=== PATIENT | male | born 1950 | race Caucasian/White ===

== ENCOUNTER 2017-03-29 12:45 | Emergency (ER) | payer MEDICARE, OTHER ==
[2017-03-29 14:35] LABS: HEMOGLOBIN 14.7 gm/dl (14.0-17.5); RED BLOOD COUNT 4.75 M/UL (4.20-5.50); WHITE BLOOD COUNT 5.2 K/UL (4.5-11.0)
[2017-03-29 15:04] LABS: BUN/CREATININE RATIO 21 (0-10)
== END 2017-03-29 17:55 | disposition home or self-care (01) ==
LOC: ER1 12:45
PROVIDERS: Family Medicine
DX: R07.89 Other chest pain (principal); R00.2 Palpitations; R06.02 Shortness of breath; R53.1 Weakness; R61 Generalized hyperhidrosis; I10 Essential (primary) hypertension; J45.909 Unspecified asthma, uncomplicated; E11.9 Type 2 diabetes mellitus without complications; Z90.49 Acquired absence of other specified parts of digestive tract; F17.220 Nicotine dependence, chewing tobacco, uncomplicated; Z79.84 Long term (current) use of oral hypoglycemic drugs; Z79.899 Other long term (current) drug therapy
CPT/HCPCS: 36415; 71010; 80053; 82550; 82553; 83874; 84484; 85025; 93005; 99285

== ENCOUNTER 2022-06-14 18:58 | Emergency (ER) | payer MEDICARE, OTHER ==
[~2022-06-14 18:58] MED LIST: ASPIRIN CHEWABL81 MG PO; CARDURA4 MG PO; FLEXERIL 10 MG10 MG PO; GLUCOPHAGE500 MG PO; HYDROCHLOROTHIA25 MG PO; LODINE CAP 300300 MG PO; MOBIC7.5 MG PO; TRAZODONE HCL100 MG PO; Voltaren Gel 1% TOP
[2022-06-14 19:27] LABS: HEMOGLOBIN 14.5 gm/dl (14.0-17.5); RED BLOOD COUNT 4.65 M/UL (4.20-5.50); WHITE BLOOD COUNT 5.4 K/UL (4.5-11.0)
[2022-06-14 19:49] LABS: BUN/CREATININE RATIO 28 (0-10)
[2022-06-14] MEDS ORDERED: HYDROCODON-ACE1 EAC4 PO (20:42)
[2022-06-14] MEDS ORDERED: ZANAFLEX4 MG PO (20:42)
== END 2022-06-14 20:51 | disposition home or self-care (01) ==
LOC: ER1 18:58
PROVIDERS: Emergency Medicine
DX: S43.402A Unspecified sprain of left shoulder joint, initial encounter (principal); E11.9 Type 2 diabetes mellitus without complications; I10 Essential (primary) hypertension; X50.9XXA Other and unspecified overexertion or strenuous movements or postures, initial encounter
CPT/HCPCS: 71045; 80053; 82550; 82553; 84484; 85025; 93005; 99284